=== PATIENT | male | born 1950 | race Caucasian/White ===

== ENCOUNTER → 2016-12-18 | Day surgery (SDC) | payer OTHER, MEDICARE ==
[~2016-12-18] MED LIST: CO Q-1010 MG PO; EYE DROP; FISH OIL 1,001000 M1 PO; LIPO-FLAVONOID1 EACH PO; MULTI VITAMIN1 EACH PO; NATURAL VITA400 UNI2 PO; RA ONE DAILY M1 EACH PO; VITAMIN B12-FO1 EACH PO
--- NOTE | ~2016-12-18 | OR ---
Unit #: [id number] #: [id number] Patient: PATRICK NEWBY SR [id number] [address] [place], [place] [address] [id number] MR#: [id number] NAME: PATRICK NEWBY SR ROOM: Date of Procedure: 12/18/2016 Admission Date: 12/18/2016 Surgeon: Marky Bautista M.D. : 1950 Attending Physician: Marky Bautista M.D. Primary Care Physician: Ashvin Freitas M.D. OPERATIVE REPORT ATTENDING PHYSICIAN Dr. Ashvin Freitas. PREOPERATIVE DIAGNOSES The patient has come for surveillance colonoscopy. He has personal history of colonic adenomas with high-grade dysplasia. PROCEDURE PERFORMED Colonoscopy up to cecum and terminal ileum. POSTOPERATIVE DIAGNOSES Mild sigmoid and descending colon diverticulosis. Otherwise, normal examination up to cecum and terminal ileum. The quality of the prep was excellent. RECOMMENDATIONS Repeat colonoscopy in 5 years. SEDATION USED MAC. DESCRIPTION OF PROCEDURE Following detailed explanation of the potential risks and complications of a colonoscopy, namely perforation, bleeding, and complications related to sedation, the patient was brought to GI lab and laid in the left lateral decubitus position. A digital rectal examination was performed, which was normal. Lubricated tip of Olympus video colonoscope was inserted through the anus and advanced under direct vision. The scope was advanced past rectosigmoid into descending colon. Scant small diverticula were seen in this area. The scope tip was then navigated all the way up to cecum with visualization of the ileocecal valve and the appendiceal orifice. Preparation was excellent with good visualization and photodocumentation was obtained. Last several inches of the terminal ileum were also visualized after intubation of the ileocecal valve and appeared normal. Successive segments of the colonic mucosa were examined upon withdrawal and appeared unremarkable. There being no polyps, mass lesions, or AVMs. Other than the scant diverticula seen in the left side, no other abnormalities were noted. The scope was then withdrawn and the patient returned to recovery area. He tolerated the procedure without any postprocedure complications. Unit #: [id number] #: [id number] Patient: PATRICK NEWBY SR Dictated by... Jing Zapien/gray TD: 12/19/2016 00:44 JOB #: [id number] CC: Audrey/sofia Please Delete OPERATIVE REPORT Page 1 of 1 X Marky Bautista MD PROCEDURE OPERATIVE NOTE
== END | disposition home or self-care (01) ==
LOC: COPS 11:35
DX: Z12.11 Encounter for screening for malignant neoplasm of colon (principal); Z86.010 Personal history of colon polyps; K57.30 Diverticulosis of large intestine without perforation or abscess without bleeding
CPT/HCPCS: J2250